=== PATIENT | female | born 1975 ===

== ENCOUNTER 2017-10-31 08:22 | Emergency (ER) | payer OTHER ==
[2017-10-31 08:37] VITALS: BMI 29.0
--- NOTE | 2017-10-31 09:17 | ED PDOC ---
History of Present Illness History of Present Illness: 42 years old female presents to the ED with complaints of nasal congestion, productive cough of green sputum and subjective fever onset 1 week. Patient offers no other medical complaints. PMD: non provided HPI: Influenza Time Seen by Provider: 10/31/17 08:34 Chief Complaint: Flu-like Symptoms Chief Complaint (Provider): Flu-like Symptoms History Per: Patient Exam Limitations: no limitations Onset/Duration Of Symptoms: Days (x 7) Symptoms include: fever (Subjective), cough (productive with green sputum), nasal congestion Past Medical History Reviewed: Historical Data, Nursing Documentation, Vital Signs Vital Signs: Last Vital Signs Temp 97 F L 10/31/17 08:36 Pulse 85 10/31/17 08:36 Resp BP 95/66 L 10/31/17 08:36 Pulse Ox 97 10/31/17 08:36 - Medical History PMH: No Chronic Diseases - Surgical History Surgical History: No Surg Hx - Family History Family History: States: Unknown Family Hx - Home Medications Home Medications: Ambulatory Orders Medication Instructions Recorded Amoxicillin [Amoxil 500 mg Cap] 500 mg PO Q8 #30 cap 10/31/17 - Allergies Allergies/Adverse Reactions: Allergies Allergy/AdvReac Type Severity Reaction Status Date / Time No Known Allergies Allergy Verified 10/31/17 08:37 Review of Systems ROS Statement: Except As Marked, All Systems Reviewed And Found Negative Constitutional: Positive for: Fever (Subjective) ENT: Positive for: Nose Congestion Respiratory: Positive for: Cough (productive) Physical Exam - Reviewed Nursing Documentation Reviewed: Yes Vital Signs Reviewed: Yes - Physical Exam Appears: Positive for: Non-toxic, No Acute Distress Head Exam: Positive for: ATRAUMATIC, NORMOCEPHALIC Skin: Positive for: Normal Color, Warm, Dry Eye Exam: Positive for: Normal appearance ENT: Positive for: Normal ENT Inspection Cardiovascular/Chest: Positive for: Regular Rate, Rhythm. Negative for: Murmur Respiratory: Positive for: Normal Breath Sounds. Negative for: Respiratory Distress Neurologic/Psych: Positive for: Alert, Oriented Medical Decision Making Medical Decision Making: Time: 0900 Initial plan: --Influenza A B Scribe Attestation: Documented by Virgie Jameson, acting as a scribe for Ryan Gan MD. Provider Scribe Attestation: All medical record entries made by the Scribe were at my direction and personally dictated by me. I have reviewed the chart and agree that the record accurately reflects my personal performance of the history, physical exam, medical decision making, and the department course for this patient. I have also personally directed, reviewed, and agree with the discharge instructions and disposition. - ECG O2 Sat by Pulse Oximetry: 97 (RA) Pulse Ox Interpretation: Normal Disposition - Clinical Impression Clinical Impression: Upper respiratory infection - Patient ED Disposition Is Patient to be Admitted: No Counseled Patient/Family Regarding: Studies Performed, Diagnosis, Need For Followup, Rx Given - Disposition [facility]errals: [facility] [Outside] Disposition: Routine/Home Disposition Time: 09:43 Condition: FAIR Prescriptions: Amoxicillin [Amoxil 500 mg Cap] 500 mg PO Q8 #30 cap Instructions: Bacterial Upper Respiratory Infection, Adult Forms: [employer] (Lithuanian)
[2017-10-31 10:01] VITALS: BP 101/67; PULSE 87; RESP 18; TEMP 97.9; O2SAT 99
== END 2017-10-31 10:01 | disposition home or self-care (01) ==
LOC: H.ER 08:22
DX: J06.9 Acute upper respiratory infection, unspecified (principal)